=== PATIENT | female | born 1975 | race Caucasian/White ===

== ENCOUNTER 2018-12-30 13:19 | Emergency (ER) | payer SELFPAY ==
[~2018-12-30] VITALS: Ht 160 cm; Wt 120.2 kg
[2018-12-30 13:30] VITALS: BP 141/94
[2018-12-30] MEDS ORDERED: methylPREDNISolone SOD SUCC PF 125 MG/2 ML VIAL. IM ONE (14:00)
[2018-12-30] MEDS ORDERED: IPRATRPIUM/ALBUTEROL 0.5/2.5MG 3 ML NEBU. NEB ONE ×2 (14:00)
--- NOTE | 2018-12-30 14:03 | PHYS DOC ---
Past Medical History Past Medical History: Asthma Past Surgical History: Appendectomy, Cholecystectomy, Other Additional Past Surgical Histo: bilateral ankle tarsal issues Alcohol Use: None Drug Use: None Adult General Chief Complaint Chief Complaint: SHORTNESS OF BREATH HPI HPI Patient is a 43 year old female with a history of asthma presents to the ED complaining of shortness of breath 2 days ago. Patient states she ran out of her medications at home. States she has not been able to use her nebulizer or inhaler. States same symptoms as previous asthma exacerbations. Patient saturating at 93% on room air. Associated symptoms include cough. Denies fever, chest pain, lower leg swelling, abdominal pain, nausea/vomiting, headache, vision changes or rash. Review of Systems Review of Systems Constitutional: Denies fever or chills [] Eyes: Denies change in visual acuity, redness, or eye pain [] HENT: Denies nasal congestion or sore throat [] Respiratory: Complains cough and shortness of breath. Cardiovascular: No additional information not addressed in HPI [] GI: Denies abdominal pain, nausea, vomiting, bloody stools or diarrhea [] : Denies dysuria or hematuria [] Musculoskeletal: Denies back pain or joint pain [] Integument: Denies rash or skin lesions [] Neurologic: Denies headache, focal weakness or sensory changes [] All other systems were reviewed and found to be within normal limits, except as documented in this note. Current Medications Current Medications Current Medications Medications (Trade) Dose Ordered Sig/Patricio Start Time Stop Time Status Last Admin Dose Admin Albuterol/ Ipratropium (Duoneb) 3 ml 1X ONCE 12/30/18 14:00 12/30/18 14:01 DC 12/30/18 14:08 3 ML Methylprednisolone Sodium Succinate (SOLU-Medrol 125MG VIAL) 125 mg 1X ONCE 12/30/18 14:00 12/30/18 14:01 DC 12/30/18 14:57 125 MG Allergies Allergies Allergies Coded Allergies Type Severity Reaction Last Updated Verified Sulfa (Sulfonamide Antibiotics) Allergy Intermediate hives 12/30/18 Yes Physical Exam Physical Exam Constitutional: Well developed, well nourished, no acute distress, non-toxic appearance. [] HENT: Normocephalic, atraumatic, bilateral external ears normal, oropharynx moist, no oral exudates, nose normal. [] Eyes: PERRLA, EOMI, conjunctiva normal, no discharge. [] Neck: Normal range of motion, no tenderness, supple, no stridor. [] Cardiovascular:Heart rate regular rhythm, no murmur [] Lungs & Thorax: Mild bilateral wheezing. Abdomen: Bowel sounds normal, soft, no tenderness, no masses, no pulsatile masses. [] Skin: Warm, dry, no erythema, no rash. [] Back: No tenderness, no CVA tenderness. [] Extremities: No tenderness, no cyanosis, no clubbing, ROM intact, no edema. [] Neurologic: Alert and oriented X 3, normal motor function, normal sensory function, no focal deficits noted. [] Psychologic: Affect normal, judgement normal, mood normal. [] Current Patient Data Vital Signs Vital Signs Date Time Temp Pulse Resp B/P (MAP) Pulse Ox O2 Delivery O2 Flow Rate FiO2 12/30/18 15:23 98 16 96 Room Air 12/30/18 13:30 98.3 141/94 (110) 98.3 EKG EKG [] Radiology/Procedures Radiology/Procedures CHEST AP ONLY Clinical Indication: Cough Comparison: None. Findings: The cardiomediastinal silhouette is normal. Lungs are clear. There is no pneumothorax. No pleural effusion is appreciated. No acute bone abnormality. IMPRESSION: No acute cardiopulmonary process. [] Course & Med Decision Making Course & Med Decision Making Pertinent Labs and Imaging studies reviewed. (See chart for details) []Patient improved after breathing treatment. States she is feeling much better. Oxygen saturation is a 97%. Patient able to ambulate without assistance. Viviana ent is not tachypneic or tachycardic. We'll treat with short course of prednisone outpatient as well as refills for nebulizer and Pro Air inhaler. Discussed symptomatic treatment, follow-up and reasons to return to the ED. Patient understands and agrees with plan. Dragon Disclaimer Dragon Disclaimer This electronic medical record was generated, in whole or in part, using a voice recognition dictation system. Departure Departure Impression: Primary Impression: Asthma exacerbation Disposition: 01 HOME, SELF-CARE Condition: IMPROVED Referrals: UNKNOWN PCP NAME (PCP) LOBITO TIAN MD Patient Instructions: Asthma, Adult Scripts Prednisone (PREDNISONE) 50 Mg Tablet 1 TAB PO DAILY for 5 Days, #5 TAB Prov: AMARIS AMOS 12/30/18 Albuterol Sulfate (ALBUTEROL SULFATE CONC NEB SOLN) 2.5 Mg/0.5 Ml Vial.neb 1 VIAL NEB Q4HRS, #60 VIAL 0 Refills Prov: AMARIS AMOS 12/30/18 Albuterol Sulfate (PROAIR HFA INHALER) 8.5 Gm Hfa.aer.ad 1 PUFF INH PRN Q6HRS PRN for SHORTNESS OF BREATH, #1 INHALER 0 Refills Prov: AMARIS AMOS 12/30/18 AMARIS AMOS December 30, 2018 14:03
--- NOTE | 2018-12-30 14:38 | RAD ---
CHEST AP ONLY Clinical Indication: Cough Comparison: None. Findings: The cardiomediastinal silhouette is normal. Lungs are clear. There is no pneumothorax. No pleural effusion is appreciated. No acute bone abnormality. IMPRESSION: No acute cardiopulmonary process. Electronically signed by: Yuan So MD (12/30/2018 2:35 PM) [id number]
[2018-12-30] MEDS ORDERED: ALBU2.5V14 NEB (15:17)
[2018-12-30] MEDS ORDERED: ALBU2.5V8 INH (15:17)
[2018-12-30] MEDS ORDERED: PRED50TA PO (15:17)
== END 2018-12-30 15:24 | disposition home or self-care (01) ==
LOC: ER 13:19
DX: J45.901 Unspecified asthma with (acute) exacerbation (principal); Z90.89 Acquired absence of other organs; Z90.49 Acquired absence of other specified parts of digestive tract; Z88.2 Allergy status to sulfonamides
CPT/HCPCS: 71045; 94640; 96372; 99284; J2930; J7620